=== PATIENT | female | born 1975 | race Caucasian/White ===

== ENCOUNTER 2023-11-20 12:31 | Emergency (ER) | payer BC, SELFPAY ==
[2023-11-20 12:44] VITALS: BP 125/88; PULSE 83; RESP 16; TEMP 36.5; O2SAT 96
--- NOTE | 2023-11-20 12:45 | ED.EAR ---
HPI - Ear Problem General Chief complaint: Ear Stated complaint: Ear Pain Time Seen by Provider: 11/20/23 12:45 Source: patient Mode of arrival: ambulatory Limitations: no limitations History of Present Illness HPI Narrative: 48 yo F presents with c/o bilateral ear pain for 3 wks. Worse to R ear. Hx of tube to R ear several years ago. Popping noises to L ear. AFebrile. All systems reviewed and negative except as noted above. Related Data Allergies Allergy/AdvReac Type Severity Reaction Status Date / Time cyclobenzaprine Allergy Intermediate Other Verified 09/11/18 15:52 latex Allergy Intermediate Other Verified 09/11/18 15:52 Review of Systems Review of Systems: CONSTITUTIONAL: Denies fever, chills, or sweats. EYES: Denies visual changes, redness, or discharge. ENT: Denies rhinorrhea, congestion, sore throat. Reports bilateral ear pain CARDIOVASCULAR: Denies chest pain, palpitations, or edema. RESPIRATORY: Denies cough or dyspnea. GASTROINTESTINAL: Denies abdominal pain, nausea, vomiting, or diarrhea. GENITOURINARY: Denies dysuria or hematuria. SKIN: Denies rash or itching. MUSCULOSKELETAL: Denies back pain, joint pain, or myalgia. NEUROLOGIC: Denies headache, numbness, or weakness. PSYCHIATRIC: Denies anxiety or depression. All other systems reviewed are negative, except as documented in HPI. PMFSH Comments At time of signature, agree with nursing past medical, surgical, social and family history. There is no relevant family history pertinent to the presenting complaint. Exam Narrative: GENERAL: This is a well-nourished, well-developed patient, in no apparent distress. HEAD: normocephalic, atraumatic. EYES: PERRL. Sclera clear/white. Vision is grossly intact. EARS: External ears normal, auditory canals clear and without drainage, fluid with dull light reflex to L ear. R TM erythematous with bubbling. no perforation bilaterally. NOSE: External nose normal NECK: Neck supple, non-tender without lymphadenopathy, masses or thyromegaly. CARDIOVASCULAR: Regular rate and rhythm without murmurs, gallops, or rubs. RESPIRATORY: Clear to auscultation. Breath sounds equal bilaterally. No wheezes, rales, or rhonchi. SKIN: warm, Dry, intact with no suspicious lesions or rash, good texture and turgor. NEURO: awake, alert, and oriented to person, place and time. There were no obvious focal neurologic abnormalities. EXTREMITIES: No joint tenderness, effusion, or edema noted. Course Course Level of Care: Express Care Visit Vital Signs Vital signs: reviewed Medical Decision Making MDM Narrative Medical decision making narrative: Patient is aware of diagnosis, understands and agrees to treatment plan. Anticipatory guidance given. Patient agrees to follow-up as directed and is aware of reasons to seek care at the emergency department. Portions of this record may have been created with voice recognition software Discharge Plan Discharge Clinical Impression: Acute otitis media, right, Acute serous otitis media, left ear Patient Disposition: Home, Self-Care Condition: Stable Instructions: Antibiotic Form, Ear Infection (ED) Additional Instructions: Take antibiotics as prescribed until gone. Take [id number] Zyrtec and Flonase daily. Take Tylenol or ibuprofen as needed for pain and fever. Follow-up with primary care physician if symptoms are not improving. Prescriptions: New amoxicillin-pot clavulanate 875-125 mg tablet 1 tablet PO Q12H 10 Days Qty: 20 0RF prednisone 20 mg tablet 40 mg PO DAILY 5 Days Qty: 10 0RF Follow-up/Referrals: Abraham,Negro Fritz MD [Primary Care Provider] - Stand Alone Forms: Work/School Release IP Time of Disposition: 12:48
== END 2023-11-20 12:56 | disposition home or self-care (01) ==
PROVIDERS: Emergency Provider Nurse Practitioner Family; PCP Internal Medicine
DX: H66.91 Otitis media, unspecified, right ear (principal); H65.02 Acute serous otitis media, left ear
CPT/HCPCS: 99203; G0463

== ENCOUNTER 2025-01-13 11:24 | Emergency (ER) | payer BC, SELFPAY ==
--- NOTE | ~2025-01-13 | US_ITS ---
EXAMINATION: US venous doppler LE RT DATE: 01/13/2025 13:13 INDICATION: Right lower limb swelling, pain and ecchymoses TECHNIQUE: Grayscale ultrasound images without and with compression and Doppler ultrasound images of the right lower extremity veins were obtained. COMPARISON: None. FINDINGS: The visualized portions of right common femoral vein, profunda (deep) femoral vein, femoral vein, pop liteal vein, peroneal trunk, posterior tibial veins, peroneal veins, gastrocnemius vein and greater s aphenous vein outflow are patent. There is a 3.4 x 1.6 x 0.3 cm lenticular anechoic subcutaneous flui d collection located 2 mm deep to the skin surface at the mid right calf consistent with a hematoma a t the site of injury. No evident internal vascular flow on color Doppler or surrounding hyperemia. IMPRESSION: 1. No deep venous thrombosis in the right lower limb. 2. Small superficial subcutaneous hematoma at the mid right calf Reviewed, dictated and finalized at location A.
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
[2025-01-13 11:27] VITALS: BP 142/75; PULSE 92; RESP 18; TEMP 36.1; O2SAT 98
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
--- OUTSIDE RECORDS SUMMARY | 2025-01-14 12:43 | XMS_ITS | Clinical Summary ---
Author Organization [facility] Address [address] [place] [address] Phone Care Team Providers Care Felt Cutter Name Role Phone Nelson Davison MD Unavailable [phone] Negro Rosario MD Primary Care Provider [phone] Onelia Rush DO Unavailable [phone] Allergies Active Allergy Reactions Criticality Noted Date Comments Cyclobenzaprine Hcl Other (see Comments) 2015 Skin felt like on fire Latex Rash 08/13/2015 blisters Medications No known medications Active Problems Problem Noted Date Diagnosed Date Chronic midline low back pain without sciatica 0 05/02/2024 Mixed hyperlipidemia 09/14/2021 Fibromyalgia 06/08/2017 Depression 09/14/2015 Tobacco dependency 08/13/2015 Resolved Problems Problem Noted Date Diagnosed Date Resolved Date Bleeding hemorrhoid 11/18/2017 09/21/19 19 Polyp of transverse colon 10/08/2017 Serrated polyp of colon 09/23/201704/2019 Family history of lung cancer 09/25/2016 06/29/2017 H/O cervical spine surgery C6-C7, 200904/24/2016 09/21/2018 Lumbar facet arthropathy 10/24/201504/2022 Sacroiliac dysfunction 10/24/201509/21 Cervical radiculopathy at C8 10/24/2015 04/21/2022 Immunizations Immunization Administration Dates Next Due TD VACCINE 09/14/2001 TDAP Vaccine 04/21/2022 Family History Medical History Relation Name Comments Other-comment Brother Addiction Cancer Father Lung? Stroke Father Cancer Maternal Aunt 1 Lung Cancer Maternal Aunt 2 stomach Psoriasis Maternal Aunt 2 Colon Cancer Maternal Grandfather 60s No Known Problems Maternal Grandmother Thyroid Disease Mother No Known Problems Other Cancer Paternal Grandfather Pancrea tic No Known Problems Paternal Grandmother No Known Problems Sister Relation Name Status Comments Brother Father Maternal Aunt 1 Maternal Aunt 2 Maternal Grandfather Maternal Grandmother Mother Alive Other Paternal Grandfather Paternal Grandmother Sister Social History Tobacco Use Types Packs/Day Years Used Date Smoking Tobacco: Every Day Cigarettes 0.5 46.3 Started: 1978 Smokeless Tobacco: Never Tobacco Cessation:Ready to Q uit: Not Asked; Counseling Given: Not Answered Alcohol Use Standard Drinks/Week Comments Yes 0 (1 standard drink = 0.6 oz pur e alcohol) social PHQ-2 Answer Date Recorded Total Score - Questions 1-9 0 11/12 Comments No Sex and Gender Information Value Date Recorded Sex Assigned at Female 04/27/2023 11:10 AM CDT Legal Sex Female 7:22 PM CDT Gender Identity Female 04/27/2023 11:10 AM CDT Sexual Orientation Not on file Last Filed Vital Signs Vital Sign Reading Time Taken Comments Blood Pressure 118/80 05/02/2024 10:55 AM CDT Pulse 89 05/02/2024 10:55 AM CDT Temperature 37.1 C (98.7 F) 05/02/2024 10:55 AM CDT Respiratory Rate 18 05/02/2024 10:55 AM CDT Oxygen Saturation 99% 05/02/2024 10:55 AM CDT Inhaled Oxygen Concentration - - Weight 78.6 kg (173 lb 3.2 oz) 05/02/2024 10:55 AM CDT Height 160 cm (5' 3 ) 05/02/2024 10:55 AM CDT Body Mass Index 30.68 05/02/2024 10:55 AM CDT Plan of Treatment Upcoming Encounters Date Type Department Care Team (Late st Contact Info) Description 05/02/2025 9:00 AM CDT Office Visit [facility] - [facility] - [place] [place] [id number] Negro Rosario MD [address] [place] [address] Health Maintenance Due Date Last Done Comments Hepatitis B Immunization (1 of 3 - 19+ 3-dose series) 1993 Pneumococcal Immunization (50+ years) (1 of 2 - PCV) 1993 HPV/Cotest 2004 Cervical Cancer Screening (CCS) 05/23/2019 Pap Smear 05/23/2019 05/23/2016, 10/10/2010 Mammogram 06/23/2023 06/23/2022, 03/19/2018 Cologuard 2024 Immunochemical Fecal Occult Blood 2024 Lung Cancer Screening 2024 Zoster Immunization (1 of 2) 2024 SARS-COV-2 Immunization ( season) 2024 03/07/2021, 02/07/2021 Influenza Immunization (Season Ended) 2025 Colonoscopy 09/01/2027 09/01/2022, 0 11/2017, 09/15/2017, Additional history exists Colorectal Cancer Screening 09/01/2027 Td Immunization Every 10 Years (Adults With 1 Tdap) 04/21/2032 04/21/2022, 09/14/2001 Respiratory Syncytial Virus (RSV) Immunization (Adult) (1 - 1-dose 75+ series) 2049 09/01/2022, 070 11/2017, 09/15/2017, Additional history exists Discussion re Starting/Frequency of Mammograms Discontinued 06/23/2022, 03/19/2018 Hepatitis C Virus (HCV) Screening Completed 05/02/2024, 11/23/2015 Human Papillomavirus (HPV) Immunization Aged Out No longer eligible based on patient's age to complete this topic Meningococcal Immunization (ACWY) Aged Out No longer eligible based on patient's age to complete this topic Rotavirus Immunization Aged Out No lo nger eligible based on patient's age to complete this topic Procedures Procedure Name Priority Date/Time Associated Diagnosis Comments HEPATITIS C ANTIBODY Routine 05/02/2024 Encounter for hepatitis C screening test for low risk patient MARLYS SCREENING BILATERAL DIGITAL W CAD W KALE Routine 03/19/2018 1:58 PM CDT Encounter for screening mammogram for malignant neoplasm of breast PATHOLOGY CYTOLOGY YIELD IMPROVEMENT ENGINEER Routine 05/23/2016 from Last 3 Months or Most Recently Relevant to Health Maintenance Results * HEPATITIS C ANTIBODY (05/02/2024) Blood 05/02/2024 us Negro Rosario MD CHEMISTRY ORDERABLES Oly l Result * MARLYS SCREENING BILATERAL DIGITAL W CAD W KALE (03/19/2018 1:58 PM CDT) Anatomical Region Laterality Modality breast Bilateral Mammography 03/19/2018 1:38 PM CDT Narrative 03/25/2018 10:04 AM CDT - MARLYS SCREENING BILATERAL DIGITAL W CAD W KALE BILATERAL DIGITAL SCREENING MAMMOGRAM 3D/2D WITH CAD WITH MEDIOLATERAL OBLIQUE CRANIOCAUDAL: 03/19/2018 The study was acquired using digital technology and interpreted from soft copy. Current study was also evaluated with ICAD version 7.2. CLINICAL: Routine screening. Patient has no complaints. No personal history of cancer. No family history of breast cancer. COMPARISONS: Comparison is made to exam dated: 12/22/2014 [facility]. BREAST TISSUE:The tissue of both breasts is heterogeneously dense. This may lower the sensitivity of mammography. FINDINGS: No significant masses, calcifications, or other findings are seen in either breast. There has been no significant interval change. IMPRESSION: BI-RAD 1 NEGATIVE There is no mammographic evidence of malignancy. A 1 year screening mammogram is recommended. The patient has been or will be contacted. The patient will be entered into a reminder system with a target due date of 1 year for her next screening exam. Electronically signed by: Al donnelly/shakira:03/25/2018 09:56:45 Software Performance Engineer: Teri KRAFT)(Jah), [facility] letter sent: Normal Exam Reading location: [facility] BI-RADS: 1 Negative Procedure Note Al Saldana MD - 03/25/2018 - MARLYS SCREENING BILATERAL DIGITAL W CAD W KALE BILATERAL DIGITAL SCREENING MAMMOGRAM 3D/2D WITH CAD WITH MEDIOLATERAL OBLIQUE CRANIOCAUDAL: 03/19/2018 The study was acquired using digital technology and interpreted from soft copy. Current study was also evaluated with ICAD version 7.2. CLINICAL: Routine screening. Patient has no complaints. No personal history of cancer. No family history of breast cancer. COMPARISONS: Comparison is made to exam dated: 12/22/2014 [facility]. BREAST TISSUE:The tissue of both breasts is heterogeneously dense. This may lower the sensitivity of mammography. FINDINGS: No significant masses, calcifications, or other findings are seen in either breast. There has been no significant interval change. IMPRESSION: BI-RAD 1 NEGATIVE There is no mammographic evidence of malignancy. A 1 year screening mammogram is recommended. The patient has been or will be contacted. The patient will be entered into a reminder system with a target due date of 1 year for her next screening exam. Electronically signed by: Al Saldana M.D. bs/penrad:03/25/2018 09:56:45 Software Performance Engineer: Teri RUIZ(R)(M), [facility] letter sent: Normal Exam Reading location: [facility] BI-RADS: 1 Negative Negro Rosario MD IMG MAMMO ORDERABLES Oly l Result * PATHOLOGY CYTOLOGY YIELD IMPROVEMENT ENGINEER (05/23/2016) Specimen of unknown material (specimen) Lopez Ken MD PATHOLOGY/CYTOLOGY ORDERABL ES Final Result from Last 3 Months or Most Recently Relevant to Health Maintenance Insurance [facility] Care Teams Felt Cutter Relationship Specialty Start Date End Date Negro Rosario MD [address] [place] [address] PCP - General Internal Medicine 04/21/22 Nelson Davison MD [address] [place] [address] Consulting Physician Psychiatry 12/27/15 [place]elia [place] [address] Consulting Physician Obstetrics & Gynecology 04/27/23
== END 2025-01-13 14:09 | disposition home or self-care (01) ==
PROVIDERS: Emergency Provider Emergency Medicine; PCP Internal Medicine
DX: S80.11XA Contusion of right lower leg, initial encounter (principal); M79.661 Pain in right lower leg; W22.8XXA Striking against or struck by other objects, initial encounter
CPT/HCPCS: 73610; 93971; 99284